=== PATIENT | female | born 1985 | race American Indian/Alaskan Native ===

== ENCOUNTER 2021-05-25 19:50 | Emergency (ER) | payer SELFPAY ==
[2021-05-25 22:20] VITALS: BP 136/68
[2021-05-25 22:55] LABS: Bilirubin,Urine NEG (Negative); Blood,Urine NEG (Negative); Color,Urine Straw (Yellow); Protein,Urine <15 mg/dL mg/dL (Negative); Urobilinogen,Urine < 2.0 mg/dL (<2.0)
[2021-05-25] MEDS ORDERED: ONDANSETRON 4 MG ODT TAB PO ONE (23:17)
[2021-05-25 23:24] LABS: Hematocrit 34.2 % (30.3-42.9); Hemoglobin 11.4 gm/dl (10.1-14.3); Mean Corpuscular HGB Conc 33 % (30-34); Mean Corpuscular Volume 75 fl (79-97); Platelet Count 279 K/mm3 (140-440); Red Blood Count 4.59 M/mm3 (3.65-5.03); Red Cell Distribution Width 17.3 % (13.2-15.2)
[2021-05-25 23:48] LABS: Alanine Aminotransferase 7 units/L (7-56); Albumin 4.4 g/dL (3.9-5); Blood Urea Nitrogen 4 mg/dL (7-17); Hemolysis Index 3
[2021-05-26 00:12] LABS: BUN/Creatinine Ratio 10
[2021-05-26] MEDS ORDERED: ONDANSETRON 4 MG ODT TAB PO ONE (01:00)
--- NOTE | 2021-05-26 01:46 | Ultrasound Report ---
ULTRASOUND OBSTETRIC INDICATION / CLINICAL INFORMATION: preg, abdominal pain. Clinical Gestational Age (GA) in weeks, days: 13, 3 TECHNIQUE: Transabdominal and Transvaginal. COMPARISON: None available. FINDINGS: GESTATIONAL SAC: Well-defined oval shape and intrauterine in location. YOLK SAC: No significant abnormality. EMBRYO/FETUS: No significant abnormality. - [place]-Rump Length = 3.69 cm = 10, 4 weeks, days. Gestational sac diameter 5.32 cm, 11 weeks 1 day. Estimated composite gestational age 10 weeks 4 days, [facility] 12/16/2021 - Heart Rate, beats per minute (if present) = 177 ADNEXA: Small right ovarian cyst measuring 1.3 x 1.1 x 1.8 cm. Right ovary measures 4.0 x 2.8 x 3.6 c m. Left ovary measures 2.0 x 0.7 x 1.6 cm. FREE FLUID: None. ADDITIONAL FINDINGS: None. IMPRESSION: 1. Single, living intrauterine with estimated sonographic age of 10 weeks 4 days. EDC 2021 Signer Name: Pedro Boyce II, MD Signed: 05/26/2021 1:42 AM Workstation Name: [id number]
--- NOTE | 2021-05-26 01:46 | Ultrasound Report ---
ULTRASOUND OBSTETRIC INDICATION / CLINICAL INFORMATION: preg, abdominal pain. Clinical Gestational Age (GA) in weeks, days: 13, 3 TECHNIQUE: Transabdominal and Transvaginal. COMPARISON: None available. FINDINGS: GESTATIONAL SAC: Well-defined oval shape and intrauterine in location. YOLK SAC: No significant abnormality. EMBRYO/FETUS: No significant abnormality. - [place]-Rump Length = 3.69 cm = 10, 4 weeks, days. Gestational sac diameter 5.32 cm, 11 weeks 1 day. Estimated composite gestational age 10 weeks 4 days, [facility] 12/16/2021 - Heart Rate, beats per minute (if present) = 177 ADNEXA: Small right ovarian cyst measuring 1.3 x 1.1 x 1.8 cm. Right ovary measures 4.0 x 2.8 x 3.6 c m. Left ovary measures 2.0 x 0.7 x 1.6 cm. FREE FLUID: None. ADDITIONAL FINDINGS: None. IMPRESSION: 1. Single, living intrauterine with estimated sonographic age of 10 weeks 4 days. EDC 2021 Signer Name: Pedro Boyce II, MD Signed: 05/26/2021 1:42 AM Workstation Name: [id number]
--- NOTE | 2021-05-26 01:53 | Emergency Department Report ---
ED HPI - General Chief complaint: Abdominal Pain Stated complaint: /STYE Time Seen by Provider: 05/25/21 22:11 Source: patient Mode of arrival: Ambulatory Limitations: No Limitations - History of Present Illness Initial comments: 35 yof with pmh of sickle cell anemia presents to ed for evaluation of few day history of abdominal pain and over a week history of frequency and dysuria. Also c/o left eye stye that has been unimproved after 2 weeks of intermittent warm compresses. MD Complaint: abdominal pain -: Gradual, days(s) (2) Location: abdomen Radiation: LLQ, RLQ Severity: mild Severity scale (0 -10): 3 Quality: aching Consistency: intermittent Associated symptoms: nausea/vomiting, abdominal pain, dysuria. denies: vaginal bleeding, vaginal discharge, headache, vision changes, malaise, shortness of breath, weakness Vaginal bleeding: none :: Yes OB History - Current : no complications Last menstrual period: 03/04/21 - Related Data Previous Rx's Medication Instructions Recorded Last Taken Type Ondansetron [Zofran Odt] 4 mg PO Q8HR PRN #21 tab.rapdis 05/26/21 Unknown Rx Polymyxin B Sulf/Trimethoprim 1 drop OU Q6HR 5 Days #10 ml 05/26/21 Unknown Rx [Polytrim Eye Drops] Allergies Allergy/AdvReac Type Severity Reaction Status Date / Time morphine AdvReac Intermediate fainted Verified 05/25/21 23:42 ED Review of Systems ROS: Stated complaint: /STYE Other details as noted in HPI Comment: All other systems reviewed and negative Constitutional: denies: chills, diaphoresis, fever, malaise, weakness Eyes: denies: eye pain ENT: denies: ear pain Respiratory: denies: cough, orthopnea, shortness of breath Cardiovascular: denies: chest pain, palpitations Endocrine: denies: no symptoms reported Gastrointestinal: abdominal pain, nausea. denies: vomiting, diarrhea, constipation, hematemesis, melena, hematochezia Genitourinary: dysuria, frequency. denies: urgency, hematuria, discharge, dyspareunia Skin: denies: rash, lesions Neurological: denies: headache, weakness, numbness, paresthesias, abnormal gait Psychiatric: denies: anxiety ED Past Medical Hx - Social History Smoking Status: Never Smoker - Medications Home Medications: Home Medications Medication Instructions Recorded Confirmed Last Taken Type Ondansetron [Zofran Odt] 4 mg PO Q8HR PRN #21 tab.rapdis 05/26/21 Unknown Rx Polymyxin B Sulf/Trimethoprim 1 drop OU Q6HR 5 Days #10 ml 05/26/21 Unknown Rx [Polytrim Eye Drops] ED Physical Exam - General Limitations: No Limitations General appearance: alert, in no apparent distress - Head Head exam: Present: atraumatic, normocephalic - Eye Eye exam: Present: normal appearance. Absent: conjunctival injection - Expanded Eye Exam Expanded Eyelids: Stye: Left - Neck Neck exam: Present: normal inspection - Respiratory Respiratory exam: Present: normal lung sounds bilaterally. Absent: respiratory distress, wheezes, rales, chest wall tenderness, accessory muscle use - Cardiovascular Cardiovascular Exam: Present: regular rate, normal heart sounds - GI/Abdominal GI/Abdominal exam: Present: soft, normal bowel sounds. Absent: distended, tenderness, guarding, rebound - Extremities Exam Extremities exam: Present: normal inspection - Back Exam Back exam: Present: normal inspection, full ROM. Absent: tenderness, CVA tenderness (R), CVA tenderness (L) - Neurological Exam Neurological exam: Present: alert, oriented X3 - Psychiatric Psychiatric exam: Present: normal affect, normal mood - Skin Skin exam: Present: warm, dry, intact, normal color ED Course Vital Signs 05/25/21 05/25/21 22:12 22:15 Temperature 98.3 F Pulse Rate 61 Respiratory 20 Rate Blood Pressure 136/68 Blood Pressure 136/68 [Right] O2 Sat by Pulse 95 Oximetry ED Medical Decision Making - Lab Data Result diagrams: 05/25/21 22:30 05/25/21 22:30 - Radiology Data Radiology results: report reviewed OB US= IUP at 10 weeks 4 days, no acute processes noted. - Medical Decision Making 35 yof with pmh of sickle cell anemia presents to ed for evaluation of few day history of abdominal pain and over a week history of frequency and dysuria.Also c/o left eye stye that has been unimproved after 2 weeks of intermittent warm compresses. Labwork wnl, no UTI noted, Us with IUP at 10 weeks 4 days. Patient was advised to use tylenol only for pain, was given prescription for Zofran for n/v, and follow up with industrial real estate agent for further evaluation and management. She was advised to return for ed for any concerning symptoms. She verbalized understanding of and agreement with plan of care. She was advised to continue warm compresses for stye along with polytrim drops. Critical care attestation.: If time is entered above; I have spent that time in minutes in the direct care of this critically ill patient, excluding procedure time. ED Disposition Clinical Impression: Hordeolum externum left upper eyelid Abdominal pain in Qualifiers: Trimester: first trimester Qualified Code(s): O26.891 - Other specified related conditions, first trimester Disposition: HOME / SELF CARE / HOMELESS Is pt being admited?: No Does the pt Need Aspirin: No Condition: Stable Instructions: Abdominal Pain During , [id number], Stye, Abdominal P ain (ED) Additional Instructions: Take medications as prescribed. Tylenol only for pain. Follow-up with CIRCULAR KNIFE MACHINE CUTTER for routine care. Prescriptions: Polymyxin B Sulf/Trimethoprim [Polytrim Eye Drops] 1 drop OU Q6HR 5 Days #10 ml Ondansetron [Zofran Odt] 4 mg PO Q8HR PRN #21 tab.rapdis PRN Reason: Nausea Referrals: PRIMARY CARE, [Primary Care Provider] - 3-5 Days MONIQUE GARDINER MD [Staff Physician] - 3-5 Days Time of Disposition: 01:52 - General Chief complaint: Abdominal Pain Stated complaint: /STYE Time Seen by Provider: 05/25/21 22:11 Source: patient Mode of arrival: Ambulatory Limitations: No Limitations - Related Data Previous Rx's Medication Instructions Recorded Last Taken Type Ondansetron [Zofran Odt] 4 mg PO Q8HR PRN #21 tab.rapdis 05/26/21 Unknown Rx Polymyxin B Sulf/Trimethoprim 1 drop OU Q6HR 5 Days #10 ml 05/26/21 Unknown Rx [Polytrim Eye Drops] Allergies Allergy/AdvReac Type Severity Reaction Status Date / Time morphine AdvReac Intermediate fainted Verified 05/25/21 23:42
== END 2021-05-26 01:58 | disposition home or self-care (01) ==
LOC: ED 19:50
DX: O26.891 Other specified pregnancy related conditions, first trimester (principal); H00.014 Hordeolum externum left upper eyelid; R10.31 Right lower quadrant pain; R10.32 Left lower quadrant pain; Z88.5 Allergy status to narcotic agent; Z79.899 Other long term (current) drug therapy; Z3A.10 10 weeks gestation of pregnancy
CPT/HCPCS: 36415; 76801; 76817; 80053; 81001; 84702; 85027; 99284; J3490; Q0162

== ENCOUNTER 2021-06-04 19:34 | Emergency (ER) | payer SELFPAY ==
[2021-06-05 01:15] VITALS: BP 112/62
[2021-06-05] MEDS ORDERED: IBUPROFEN 800 MG TAB PO ONE (02:57)
[2021-06-05] MEDS ORDERED: diphenhydrAMINE 25 MG CAP PO ONE (02:57)
[2021-06-05] MEDS ORDERED: SODIUM CHLORIDE 0.9% 1000 ML 1,000 ML IV ONE (02:58)
[2021-06-05 03:27] LABS: Bilirubin,Urine NEG (Negative); Blood,Urine LG (Negative); Color,Urine Red (Yellow); Mucus,Urine FEW /HPF; Urobilinogen,Urine < 2.0 mg/dL (<2.0)
[2021-06-05 03:28] LABS: RBC,Urine > 182.0 /HPF (0.0-6.0)
[2021-06-05 03:29] LABS: Basophils # (Auto) 0.1 K/mm3 (0.0-0.1); Basophils % (Auto) 0.6 % (0.0-1.8); Eosinophils # (Auto) 0.1 K/mm3 (0.0-0.4); Eosinophils % (Auto) 0.8 % (0.0-4.3); Hematocrit 30.4 % (30.3-42.9); Hemoglobin 10.2 gm/dl (10.1-14.3); Lymphocytes # (Auto) 4.1 K/mm3 (1.2-5.4); Lymphocytes % (Auto) 34.8 % (13.4-35.0); Mean Corpuscular HGB Conc 33 % (30-34); Mean Corpuscular Volume 74 fl (79-97); Monocytes # (Auto) 0.9 K/mm3 (0.0-0.8); Monocytes % (Auto) 7.2 % (0.0-7.3); Platelet Count 274 K/mm3 (140-440); Red Blood Count 4.09 M/mm3 (3.65-5.03); Red Cell Distribution Width 15.8 % (13.2-15.2)
--- NOTE | 2021-06-05 03:40 | XRay Report ---
XR chest routine 2V INDICATION / CLINICAL INFORMATION: chest pain. COMPARISON: None available. FINDINGS: SUPPORT DEVICES: None. HEART /PULMONARY VASCULATURE: No significant abnormality. LUNGS / PLEURA: No significant pulmonary or pleural abnormality. No pneumothorax. ADDITIONAL FINDINGS: No significant additional findings. IMPRESSION: 1. No acute findings. Signer Name: Handy Stearns MD Signed: 06/05/2021 3:35 AM Workstation Name: [id number]
[2021-06-05 03:46] LABS: Alanine Aminotransferase 7 units/L (7-56); Albumin 3.9 g/dL (3.9-5); Blood Urea Nitrogen 6 mg/dL (7-17); Calcium 8.8 mg/dL (8.4-10.2); Hemolysis Index 6
[2021-06-05 03:49] LABS: BUN/Creatinine Ratio 10
--- NOTE | 2021-06-05 05:04 | Emergency Department Report ---
ED General Adult HPI - General Chief complaint: Sickle Cell Crisis Stated complaint: CHEST PAIN ANXIETY Time Seen by Provider: 06/05/21 02:56 Source: patient Mode of arrival: Ambulatory Limitations: No Limitations - History of Present Illness Initial comments: Patient is a 35-year-old -[place] female with history of sickle cell anemia who presents for chest wall pain and malaise x1 day. Patient states she had an on yesterday. Patient denies fevers or chills there is no shortness of breath there is no wheezing no stridor. No hemoptysis. Patient currently not taking medications for management of sickle cell. Patient states no need to follow rheumatology as she does not have frequent flares. Patient does not does endorse moderate postprocedural bleeding. Severity scale (0 -10): 0 - Related Data Previous Rx's Medication Instructions Recorded Last Taken Type Ondansetron [Zofran Odt] 4 mg PO Q8HR PRN #21 tab.rapdis 05/26/21 Unknown Rx Polymyxin B Sulf/Trimethoprim 1 drop OU Q6HR 5 Days #10 ml 05/26/21 Unknown Rx [Polytrim Eye Drops] Ibuprofen [Motrin 800 MG tab] 800 mg PO Q8HR PRN #30 tablet 06/05/21 Unknown Rx diphenhydrAMINE [Benadryl CAP] 25 mg PO Q6HR PRN #30 capsule 06/05/21 Unknown Rx Allergies Allergy/AdvReac Type Severity Reaction Status Date / Time morphine AdvReac Intermediate fainted Verified 05/25/21 23:42 ED Review of Systems ROS: Stated complaint: CHEST PAIN ANXIETY Other details as noted in HPI Constitutional: malaise Eyes: denies: eye pain, eye discharge, vision change ENT: denies: ear pain, throat pain Respiratory: denies: cough, shortness of breath, wheezing Cardiovascular: denies: chest pain, palpitations Endocrine: no symptoms reported Gastrointestinal: denies: abdominal pain, nausea, vomiting, diarrhea Genitourinary: urgency, frequency Musculoskeletal: denies: back pain, joint swelling, arthralgia Skin: denies: rash, lesions Neurological: denies: headache, weakness, paresthesias, vertigo Psychiatric: denies: anxiety, depression Hematological/Lymphatic: denies: easy bleeding, easy bruising ED Past Medical Hx - Past Medical History Previous Medical History?: Yes Additional medical history: SC type SS - Surgical History Past Surgical History?: Yes Additional Surgical History: C-Sec. Preg Termination - Social History Smoking Status: Never Smoker - Medications Home Medications: Home Medications Medication Instructions Recorded Confirmed Last Taken Type Ondansetron [Zofran Odt] 4 mg PO Q8HR PRN #21 tab.rapdis 05/26/21 Unknown Rx Polymyxin B Sulf/Trimethoprim 1 drop OU Q6HR 5 Days #10 ml 05/26/21 Unknown Rx [Polytrim Eye Drops] Ibuprofen [Motrin 800 MG tab] 800 mg PO Q8HR PRN #30 tablet 06/05/21 Unknown Rx diphenhydrAMINE [Benadryl CAP] 25 mg PO Q6HR PRN #30 capsule 06/05/21 Unknown Rx ED Physical Exam - General Limitations: No Limitations General appearance: alert, in no apparent distress - Head Head exam: Present: normocephalic, normal inspection - Eye Eye exam: Present: normal appearance, PERRL, EOMI. Absent: conjunctival injection, nystagmus Pupils: Present: normal accommodation - ENT ENT exam: Present: mucous membranes moist - Neck Neck exam: Present: normal inspection, full ROM. Absent: tenderness, meningismus, lymphadenopathy, thyromegaly - Respiratory Respiratory exam: Present: normal lung sounds bilaterally. Absent: respiratory distress, wheezes, rhonchi, stridor, chest wall tenderness - Cardiovascular Cardiovascular Exam: Present: regular rate, normal rhythm, normal heart sounds. Absent: systolic murmur, diastolic murmur, rubs, gallop - GI/Abdominal GI/Abdominal exam: Present: soft, normal bowel sounds. Absent: distended, tenderness, guarding, rebound, rigid, bruit, hernia - Rectal Rectal exam: Present: deferred - Extremities Exam Extremities exam: Present: normal inspection, full ROM, normal capillary refill. Absent: tenderness, pedal edema, joint swelling - Back Exam Back exam: Present: normal inspection, full ROM. Absent: tenderness, CVA tenderness (R), CVA tenderness (L) - Neurological Exam Neurological exam: Present: alert, oriented X3, CN II-XII intact, normal gait - Psychiatric Psychiatric exam: Present: normal affect - Skin Skin exam: Present: warm, dry, intact, normal color. Absent: rash ED Course Vital Signs 06/05/21 01:07 Temperature 98.3 F Pulse Rate 77 Respiratory 17 Rate Blood Pressure 112/62 [Left] O2 Sat by Pulse 100 Oximetry ED Medical Decision Making - Lab Data Result diagrams: 06/05/21 03:11 06/05/21 03:11 Labs 06/05/21 06/05/21 06/05/21 03:11 03:11 Unknown WBC 11.8 H RBC 4.09 Hgb 10.2 Hct 30.4 MCV 74 L MCH 25 L MCHC 33 RDW 15.8 H Plt Count 274 Lymph % (Auto) 34.8 [place] % (Auto) 7.2 Eos % (Auto) 0.8 Baso % (Auto) 0.6 Lymph # (Auto) 4.1 [place] # (Auto) 0.9 H Eos # (Auto) 0.1 Baso # (Auto) 0.1 Seg Neutrophils % 56.6 Seg Neutrophils # 6.7 Percent Retic 3.35 H Sodium 138 Potassium 3.8 Chloride 104.0 Carbon Dioxide 22 Anion Gap 16 BUN 6 L Creatinine 0.6 Estimated GFR > 60 BUN/Creatinine Ratio 10 Glucose 102 H Calcium 8.8 Total Bilirubin 0.70 AST 13 ALT 7 Alkaline Phosphatase 45 Total Protein 6.4 Albumin 3.9 Albumin/Globulin Ratio 1.6 Urine Color Red Urine Turbidity Clear Urine pH 8.0 H Ur Specific [place] 1.010 Urine Protein 100 mg/dl Urine Glucose (UA) Neg Urine Ketones Neg Urine Blood Lg Urine Nitrite Neg Urine Bilirubin Neg Urine Urobilinogen < 2.0 Ur Leukocyte Esterase Neg Urine WBC (Auto) 26.0 H Urine RBC (Auto) > 182.0 U Epithel Cells (Auto) 9.0 Urine Mucus Few - Radiology Data Radiology results: report reviewed, image reviewed INDICATION / CLINICAL INFORMATION: chest pain. COMPARISON: None available. FINDINGS: SUPPORT DEVICES: None. HEART /PULMONARY VASCULATURE: No significant abnormality. LUNGS / PLEURA: No significant pulmonary or pleural abnormality. No pneumothorax. ADDITIONAL FINDINGS: No significant additional findings. IMPRESSION: 1. No acute findings. Signer Name: Isiah Whiteside MD Signed: 06/05/2021 3:35 AM Workstation Name: [id number] Transcribed By: TANIA Dictated By: ISIAH WHITESIDE MD Electronically Authenticated By: ISIAH WHITESIDE MD Signed Date/Time: 06/05/21334 DD/ 4 TD/TT: - Medical Decision Making Chest x-ray normal no infiltrates no opacities, labs noted white count 11.8, UA noted for leukocytes and bacteria plan treat for UTI, follow-up with your doctor in 2 to 3 days.ert1 patient advises symptoms are improved. Plan DC to home, NSAIDs, as needed pain medicine, ` follow-up with your primary care doctor in 2 to 3 days. Patient verbalized agreement and understanding with discharge plan. Patient DC'd home in stable condition at this time. Critical care attestation.: If time is entered above; I have spent that time in minutes in the direct care of this critically ill patient, excluding procedure time. ED Disposition Clinical Impression: Sickle cell anemia Qualifiers: Sickle-cell associated disorders: without crisis Qualified Code(s): D57.1 - Sickle-cell disease without crisis UTI (urinary tract infection) Qualifiers: Urinary tract infection type: acute cystitis Hematuria presence: without hematuria Qualified Code(s): N30.00 - Acute cystitis without hematuria Disposition: HOME / SELF CARE / HOMELESS Is pt being admited?: No Does the pt Need Aspirin: No Condition: Stable Additional Instructions: Take medications as prescribed, continue to hydrate as directed, follow-up with your doctor in 2 to 3 days. Return to emergency department should symptoms worsen. Prescriptions: diphenhydrAMINE [Benadryl CAP] 25 mg PO Q6HR PRN #30 capsule PRN Reason: sickel pain Ibuprofen [Motrin 800 MG tab] 800 mg PO Q8HR PRN #30 tablet PRN Reason: pain Referrals: LOLIS HARRIS MD [Staff Physician] - 3-5 Days Forms: Work/School Release Form(ED) Time of Disposition: 05:33
== END 2021-06-05 06:27 | disposition home or self-care (01) ==
LOC: ED 19:34
DX: D57.1 Sickle-cell disease without crisis (principal); N39.0 Urinary tract infection, site not specified; Z88.5 Allergy status to narcotic agent
CPT/HCPCS: 36415; 71046; 80053; 81001; 85025; 85045; 87086; 96360; 99284; J7030; Q0162

== ENCOUNTER 2021-06-07 01:06 | Emergency (ER) | payer SELFPAY ==
[2021-06-07] MEDS ORDERED: ACETAMINOPHEN 500 MG TAB PO ONE (03:14)
[2021-06-07] MEDS ORDERED: IBUPROFEN 400 MG TAB PO ONE (03:14)
--- NOTE | 2021-06-07 03:20 | Emergency Department Report ---
ED General Adult HPI - General Chief complaint: Sickle Cell Crisis Stated complaint: SCICKLE CELL PAIN PUI?: No Time Seen by Provider: 06/07/21 03:06 Source: patient, RN notes reviewed, old records reviewed Mode of arrival: Ambulatory Limitations: No Limitations - History of Present Illness Initial comments: The patient was evaluated in the emergency department for symptoms described in the history of present illness. He/she was evaluated in the context of the global COVID-19 pandemic, which necessitated consideration that the patient might be at risk for infection with the virus that causes COVID-19. Institutional protocols and algorithms that pertain to the evaluation of patients at risk for COVID-19 are in a state of rapid change based on information released by regulatory bodies including the CDC and federal and state organizations. These policies and algorithms were followed during the patient's care in the emergency department. Please note that these policies, procedures and recommendations changed on a rapid basis. During the history and physical examination I am chaperoned by Den Morris The patient is a 35-year-old female, who presents to the ER today with a primary complaint of Lumbar back pain, and gluteal/lower back pain. 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 She also reports that she is homeless/undomiciled, and very stressed out. She also reports poor sleep. She reports having had an elective termination of a few days ago. She was seen by one of my colleagues in this emergency room on the of this month for nonspecific symptoms, and had a laboratory and radiologic evaluation which were unremarkable. She was discharged with prescriptions, but reports being unable to afford her prescriptions secondary to financial cost. She denies dysuria. She is requesting nonnarcotic medication. -: Gradual, days(s) Location: lower extremity Severity scale (0 -10): 4 Quality: aching Consistency: intermittent Improves with: rest Worsens with: movement - Related Data Previous Rx's Medication Instructions Recorded Last Taken Type Ondansetron [Zofran Odt] 4 mg PO Q8HR PRN #21 tab.rapdis 05/26/21 Unknown Rx Polymyxin B Sulf/Trimethoprim 1 drop OU Q6HR 5 Days #10 ml 05/26/21 Unknown Rx [Polytrim Eye Drops] diphenhydrAMINE [Benadryl CAP] 25 mg PO Q6HR PRN #30 capsule 06/05/21 Unknown Rx Acetaminophen [Non-Aspirin Extra 500 mg PO Q6HR PRN #30 tablet 06/07/21 Unknown Rx Strength] Ibuprofen [Motrin] 400 mg PO Q8H PRN #30 tablet 06/07/21 Unknown Rx Allergies Allergy/AdvReac Type Severity Reaction Status Date / Time morphine AdvReac Intermediate fainted Verified 05/25/21 23:42 ED Review of Systems ROS: Stated complaint: SCICKLE CELL PAIN Other details as noted in HPI Constitutional: denies: fever Eyes: denies: eye discharge ENT: denies: epistaxis Respiratory: denies: cough Cardiovascular: denies: chest pain Gastrointestinal: denies: abdominal pain, vomiting Genitourinary: denies: dysuria Musculoskeletal: back pain, arthralgia, myalgia Neurological: weakness Psychiatric: anxiety ED Past Medical Hx - Past Medical History Previous Medical History?: Yes Additional medical history: SC type SS - Surgical History Past Surgical History?: Yes Additional Surgical History: C-Sec. Preg Termination - Social History Smoking Status: Never Smoker - Medications Home Medications: Home Medications Medication Instructions Recorded Confirmed Last Taken Type Ondansetron [Zofran Odt] 4 mg PO Q8HR PRN #21 tab.rapdis 05/26/21 Unknown Rx Polymyxin B Sulf/Trimethoprim 1 drop OU Q6HR 5 Days #10 ml 05/26/21 Unknown Rx [Polytrim Eye Drops] diphenhydrAMINE [Benadryl CAP] 25 mg PO Q6HR PRN #30 capsule 06/05/21 Unknown Rx Acetaminophen [Non-Aspirin Extra 500 mg PO Q6HR PRN #30 tablet 06/07/21 Unknown Rx Strength] Ibuprofen [Motrin] 400 mg PO Q8H PRN #30 tablet 06/07/21 Unknown Rx ED Physical Exam - General Limitations: No Limitations General appearance: alert, in no apparent distress - Head Head exam: Present: atraumatic, normocephalic - Eye Eye exam: Present: normal appearance, EOMI. Absent: nystagmus - ENT ENT exam: Present: normal exam, normal orophraynx, mucous membranes moist, normal external ear exam - Neck Neck exam: Present: normal inspection, full ROM. Absent: tenderness, meningismus - Respiratory Respiratory exam: Present: normal lung sounds bilaterally. Absent: respiratory distress, wheezes, rhonchi, stridor, decreased breath sounds - Cardiovascular Cardiovascular Exam: Present: regular rate, normal rhythm, normal heart sounds. Absent: bradycardia, tachycardia, irregular rhythm, systolic murmur, diastolic murmur, rubs, gallop - GI/Abdominal GI/Abdominal exam: Present: soft. Absent: distended, tenderness, guarding, rebound, rigid, pulsatile mass - Extremities Exam Extremities exam: Present: normal inspection, full ROM, other (2+ pulses noted in the bilateral upper and lower extremities. There is no palpable cord. negative Homans sign. Muscular compartments are soft. The pelvis is stable.). Absent: pedal edema, calf tenderness - Back Exam Back exam: Present: normal inspection, full ROM. Absent: tenderness, CVA tenderness (R), CVA tenderness (L), paraspinal tenderness, vertebral tenderness - Neurological Exam Neurological exam: Present: alert, oriented X3, normal gait, other (No facial droop. Tongue midline. Extraocular movements intact bilaterally. Facial sensation intact to light touch in V1, V2, V3 distribution bilaterally. 5 and a 5 strength in 4 extremities. Sensation intact to light touch in 4 extremities.). Absent: motor sensory deficit - Psychiatric Psychiatric exam: Present: anxious - Skin Skin exam: Present: warm, dry, intact, normal color. Absent: rash ED Course Vital Signs 06/07/21 02:54 Temperature 98.5 F Pulse Rate 85 Respiratory 17 Rate Blood Pressure 132/82 [Right] O2 Sat by Pulse 100 Oximetry ED Medical Decision Making - Lab Data Vital Signs 06/07/21 02:54 Temperature 98.5 F Pulse Rate 85 Respiratory 17 Rate Blood Pressure 132/82 [Right] O2 Sat by Pulse 100 Oximetry - Medical Decision Making Differential diagnosis, including not limited to: Encounter for medical ne reening examination, homelessness, lower back pain, history of sickle cell Assessment and plan: 35-year-old female, who is afebrile, with reassuring vital signs, who is clinically sober, with no abdominal tenderness, rebound or guarding, ambulatory with a steady gait, without scleral icterus, had laboratory evaluation at this facility 2 days ago which was essentially unremarkable (urine culture negative, will therefore discontinue antibiotics), without irritative or obstructive urinary symptoms, who primarily complains of gluteal/paralumbar lower back pain. Patient declining narcotic therapy at this time. Given recent evaluation, objective physical examination, benign appearance, normal vital signs, do not feel that repeat laboratory studies are indicated. I do suspect that patient may be in part presenting secondary to homelessness. However, we will treat her pain, and I will also provide this patient with a good Rx affordable prescription card. Patient does not appear to have an emergent medical or psychiatric condition present at this time. She may follow-up as an outpatient. Critical care attestation.: If time is entered above; I have spent that time in minutes in the direct care of this critically ill patient, excluding procedure time. ED Disposition Clinical Impression: Lower back pain, History of sickle cell disease Disposition: HOME / SELF CARE / HOMELESS Is pt being admited?: No Does the pt Need Aspirin: No Condition: Good Additional Instructions: Patient may take the prescribed pain medications as needed and directed. Patient should discontinue 800 mg ibuprofen prescription, patient will be prescribed 400 mg, which is appropriate for this patient's body weight. In addition, urine cultures which were sent a few days ago were negative for bacteria, so patient does not require antibiotics. Patient will be provided with a good Rx affordable prescription card. Please follow the instructions on the prescription card, or download the application on your smart phone. 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 Please return to the emergency room right away with new pain, worsened pain, migration of pain, projectile vomiting, change in mental status, confusion, inability tolerate liquid feeds, new, worsened or different symptoms not present on the initial emergency room evaluation Referrals: ALLISON MARTÍNEZ MD [Staff Physician] - 3-5 Days WALLACE MITCHELL MD [Staff Physician] - 3-5 Days
[2021-06-07 06:42] VITALS: BP 117/61
== END 2021-06-07 06:42 | disposition home or self-care (01) ==
LOC: ED 01:06
DX: M54.50 Low back pain, unspecified (principal); D57.1 Sickle-cell disease without crisis; Z88.5 Allergy status to narcotic agent; Z98.890 Other specified postprocedural states; Z79.899 Other long term (current) drug therapy
CPT/HCPCS: 99282